=== PATIENT | male | born 1985 | race African-American/Black ===

== ENCOUNTER 2022-04-16 23:40 | Emergency (ER) | payer OTHER, SELFPAY ==
--- NOTE | ~2022-04-16 | XR_ITS ---
EXAMINATION: XR HAND, RIGHT CLINICAL INFORMATION: Pain COMPARISON: None TECHNIQUE: PA, lateral, and oblique views of the right hand. FINDINGS: Osseous alignment is anatomic. No acute fracture is seen. Small chronic appearing calcification near the third MCP joint. No significant focal soft tissue abnormality identified. XR/XR hand RT 2V IMPRESSION: No acute findings identified.
[2022-04-17 00:12] VITALS: BP 159/91; PULSE 109; RESP 22; TEMP 36.6; O2SAT 95; BMI 52.7
[2022-04-17 01:35] LABS: COVID-19 Test Negative (Negative); IDNOW Serial# 55D5AD1C
[2022-04-17 02:01] LABS: IDNOW Serial# 55D5AD1C; Influenza A Negative (Negative); Influenza B2 Negative (Negative)
[2022-04-17 04:16] VITALS: BP 155/87; PULSE 103; RESP 20; TEMP 36.8; O2SAT 97
--- NOTE | 2022-04-17 04:42 | ED_ITS ---
HPI - URI/Sore Throat General Chief Complaint: Upper Respiratory Symptoms Stated Complaint: congestion, cough, discolored phlegm Time Seen by Provider: 04/17/22 04:36 Source: patient Mode of arrival: ambulatory Limitations: no limitations History of Present Illness HPI Narrative: Patient comes to the emergency room complaining of 3 days of cough and nasal congestion. Patient denies fever chills. Patient states that he is supposed to be using CPAP at night, has unable to use it because he got locked up in his property, and is unable to get to it. Patient denies chest pain, shortness of breath . Related Data Previous Rx's Medication Instructions Recorded fexofenadine 60 mg-pseudoephedrine 1 tab PO Q12H #10 tabs 04/17/22 ER 120 mg tablet,ext.release,12 hr (Sary-D 12 Hour) fluticasone propionate 50 1 spray intranasal BID #16 grams 04/17/22 mcg/actuation nasal spray,suspension (Flonase Allergy Relief) ibuprofen 600 mg tablet 600 mg PO TID PRN fever or pain 04/17/22 #10 tabs Allergies Allergy/AdvReac Type Severity Reaction Status Date / Time No Known Allergies Allergy Verified 04/17/22 04:45 Review of Systems Review of Systems: Constitutional : No Weight loss, No Fever, No Chills, No N ight Sweats, No Fatigue, No Malaise ENT/Mouth : No Hearing loss, No Ear Pain, complaining of Nasal Congestion, No Sinus Pain, No Hoarseness, No sore throat, complaining of Rhinorrhea, No Swallowing Difficulty Eyes: No Eye Pain, No Swelling, No Redness, No Foreign Body, No Discharge, No Vision Changes Cardiovascular : No Chest Pain, No SOB, No Dyspnea on Exertion, No Orthopnea, No Edema, No Palpitations Respiratory : Complaining of Cough, No Sputum, No Wheezing, No Smoke Exposure, No Dyspnea Gastrointestinal : No Nausea, No Vomiting, No Diarrhea, No Constipation, No abdominal Pain, No Hematochezia, No Melena Genitourinary : no irregular bleeding, No Dysuria, No Urinary Frequency, No Hematuria, No Urinary Incontinence, No Urgency, No Flank Pain, No Urinary Flow Changes, No Hesitancy Musculoskeletal : No joint pain, No Myalgias, No Joint Swelling Skin : No Skin Lesions, No rash Neuro : No Weakness, No Numbness, No Paresthesias, No Loss of Consciousness, No Dizziness, No Headache Psych : No Anxiety/Panic, No Depression, No SI/HI/AH/VH, No Social Issues, Heme/Lymph: No Bruising, No Bleeding,No Lymphadenopathy Endocrine : No Polyuria, No Polydipsia, No Temperature Intolerance [facility] Past Medical History Medical History (Updated 04/17/22 @ 04:45 by Yin Tee MD) Obstructive sleep apnea Social History Social History Advance Directives: No Advance Directives Information Provided: No Physical Exam Vital Signs: Vital Signs: Last Vital Signs Temp 98.3 F 04/17/22 04:16 Pulse 103 H 04/17/22 04:16 Resp 20 04/17/22 04:16 BP 155/87 H 04/17/22 04:16 Pulse Ox 97 04/17/22 04:16 O2 Del Method 04/17/22 04:16 BMI result Body Mass Index 52.7 Const: Other: Appearance: Alert. Oriented X3. No acute distress. Morbidly obese Eyes: Pupils equal, round and reactive to light. ENT: Pharynx normal. Nasal congestion, mild rhinorrhea Neck: Normal inspection. Neck supple. No lymph nodes noted. No crepitus CVS: Normal heart rate and rhythm. Pulses normal. Normal S1 and S2 Respiratory: No respiratory distress. Breath sounds normal. No Wheezing. No rales Abdomen: Soft and nontender. No rigidity. No distention. Skin: Skin warm and dry. Normal skin color. Normal skin turgor. Extremities: No lower extremity edema. No Lacerations. No Rash Neuro: Oriented X 3. No motor deficit. No sensory deficit. Moving all extremities. No slurred speech. CN 2 through 12 grossly intact Psych: calm, cooperative, normal affect Course Course Course Narrative: I discussed with the patient that he tested negative for COVID-19, RSV and influenza. Patient likely having a viral illness. Discussed with the patient he needs to contact his primary care physician and hopefully he can get a referral for a CPAP machine MDM - URI/Sore Throat Lab Data Labs: Lab Results 04/17/22 04/17/22 04/17/22 Range/Units 00:52 00:52 01:34 COVID-19 (MELISSA) Negative (Negative) COVID-19 Clin Com See Note Influenza Type A (GAIL) Cancelled Negative Influenza Type B (GAIL) Cancelled Negative Influenza A & B Note Cancelled See Note Discharge Plan Discharge Clinical Impression: Viral URI with cough Patient Disposition: Home, Self-Care Instructions: Viral Syndrome (ED) Additional Instructions: Please follow-up with your primary care physician tomorrow. If you have any worsening or new symptoms, please return to the emergency room or call 911 Prescriptions: New fexofenadine-pseudoephedrine [Sary-D 12 Hour] 60-120 mg tablet extended release 12 hr 1 tab PO Q12H Qty: 10 0RF fluticasone propionate [Flonase Allergy Relief] 50 mcg/actuation spray,suspension 1 spray intranasal BID Qty: 16 0RF Rx Instructions: administer into each nostril ibuprofen 600 mg tablet 600 mg PO TID PRN (Reason: fever or pain) Qty: 10 0RF Stand Alone Forms: Work/School Release
== END 2022-04-17 05:39 | disposition home or self-care (01) ==
PROVIDERS: Emergency Provider Emergency Medicine
DX: J06.9 Acute upper respiratory infection, unspecified (principal); R05.9 Cough, unspecified; Z20.822 Contact with and (suspected) exposure to COVID-19; E66.01 Morbid (severe) obesity due to excess calories; Z68.43 Body mass index [BMI] 50.0-59.9, adult
CPT/HCPCS: 73120; 87502; 87635; 99283